=== PATIENT | female | born 1940 | race Caucasian/White ===

== ENCOUNTER 2018-07-07 07:17 | Inpatient (IN) | payer OTHER ==
[2018-06-29 13:58] VITALS: BMI 29.7
[2018-07-07] MEDS ORDERED: DEXAMETHASONE SOD PHOSPHATE/PF 10 MG/ML SDV ONE (07:50)
[2018-07-07] MEDS ORDERED: BUPIVACAINE HCL/PF (5 MG/ML) 30 ML VIAL IJ ONE (07:50)
[2018-07-07] MEDS ORDERED: MIDAZOLAM HCL 2 MG/2 ML SINGLE DOSE VIAL ONE ×2 (07:50→11:16)
[2018-07-07] MEDS ORDERED: PROPOFOL 20 ML ONE ×3 (08:13→12:21)
[2018-07-07] MEDS ORDERED: VANCOMYCIN 1,000 MG VIAL (RESTRICTED TO ID ONLY) ONE (08:15)
[2018-07-07] MEDS ORDERED: ceFAZolin SODIUM 1 GM VIAL ONE ×2 (08:15→11:54)
[2018-07-07] MEDS ORDERED: SODIUM CHLORIDE 0.9% P/F 10 ML VIAL IJ ONE ×3 (08:15→11:54)
[2018-07-07] MEDS ORDERED: BENZOIN/ALOE VERA/STORAX/TOLU 58 ML BOTTLE ONE (10:02)
[2018-07-07] MEDS ORDERED: TRANEXAMIC ACID 1000 MG/10 ML VIAL IVPUSH ONE (10:04)
[2018-07-07] MEDS ORDERED: CEFAZOLIN 1 GM/D5W 1 GRAM/50 ML BAG IVPB ONE (10:04)
[2018-07-07] MEDS ORDERED: VANCOMYCIN 1,000 MG in DEXTROSE 5%-WATER - 250 ML IVPB ONE (10:04)
[2018-07-07] MEDS ORDERED: ePHEDrine SULFATE 50 MG/1 ML AMPULE ONE (10:19)
[2018-07-07] MEDS ORDERED: LIDOCAINE HCL/PF 2% SDV 5ML VIAL ONE (10:21)
[2018-07-07] MEDS ORDERED: TRANEXAMIC ACID 1000 MG/10 ML VIAL ONE (10:34)
[2018-07-07] MEDS ORDERED: KETOROLAC TROMETHAMINE 30 MG/1 ML VIAL ONE (12:22)
[2018-07-07] MEDS ORDERED: ONDANSETRON 4 MG/2 ML VIAL IVPUSH PRN ×2 (12:31→13:00)
[2018-07-07] MEDS ORDERED: MAG HYDROX/AL HYDROX/SIMETH 30 ML UNIT-DOSE CUP PO PRN (12:31)
[2018-07-07] MEDS ORDERED: MAGNESIUM HYDROX 2400MG/30ML ORAL SUSPENSION 30 ML CUP PO PRN (12:31)
--- NOTE | 2018-07-07 12:36 | PN ---
Progress Note (short form) - Note Progress Note: 77F s/p RIGHT total hip replacement POD #0. -Pain control: as per anaesthesia team. -DVT PPx: - Mechanical: B/L LE KAYLA's, SCD's. - Chemical: ASA EC 81mg PO BID x 6 weeks post-op. -Incentive spirometry; pulmonary toilet. -Claudia-op antibiotics: Ancef. -PT/OT/Rehab, OOB. -WBAT RLE. -Hip abduction pillow when not ambulating. -f/u post-op trial of void. -Advance diet as tolerated. -f/u AM labs. -f/u post-op AP pelvis & right hip x-rays. -Care per medical hospitalist team. -Discharge planning. -Will follow. Joss Mullins MD (Orthopaedic Surgery).
--- NOTE | 2018-07-07 12:44 | OP ---
Operative Note - Note: Operative Date: 07/07/18 Pre-Operative Diagnosis: Right hip DJD Operation: 1. Right DAMIEN. 2. ORIF right greater trochanter Implants: Eva. Cup - Tritanium, 56mm. Poly - 28mm, neutral. Stem - SecureFit Advanced #10, High-Offset (127 degree NSA). Head - 28mm diameter, - 4mm length Biolox/Delta Ceramic Specimens Removed: Right femoral head Estimated Blood Loss (mls): 200 Fluid Volume Replaced (mls): 1,000 Operative Report Dictated: Yes
[2018-07-07] MEDS ORDERED: LACTATED RINGERS SOLUTION 1,000 ML IV SCH ×2 (12:45→13:00)
[2018-07-07] MEDS ORDERED: ACETAMINOPHEN 325 MG TABLET (FP) PO SCH (13:00)
[2018-07-07] MEDS ORDERED: oxyCODONE HCL 5 MG TABLET PO PRN (13:00)
--- NOTE | 2018-07-07 16:12 | CONSULT ---
Consultation: REQUESTING PROVIDER: Dr. Joss Mullins PCP/forensic computer examiner: Dr. Sears CONSULT REQUEST: We have been asked to medically manage this patient perioperatively. HISTORY OF PRESENT ILLNESS: 77 year-old female with a PMH significant for HTN, HLD, heart failure, NIDDM, COPD, anemia, paranoid schizophrenia, dementia, and osteoarthritis of the right hip s/p elective total right hip replacement earlier today. REVIEW OF SYSTEMS: CONSTITUTIONAL: Absent: fever, chills, diaphoresis, generalized weakness, malaise, loss of appetite, weight change HEENT: Absent: rhinorrhea, nasal congestion, throat pain, throat swelling, difficulty swallowing, mouth swelling, ear pain, eye pain, visual changes CARDIOVASCULAR: Absent: chest pain, syncope, palpitations, irregular heart rate, lightheadedness , peripheral edema RESPIRATORY: Absent: cough, shortness of breath, dyspnea with exertion, orthopnea, wheezing, stridor, hemoptysis GASTROINTESTINAL: Absent: abdominal pain, abdominal distension, nausea, vomiting, diarrhea, constipation, melena, hematochezia GENITOURINARY: Absent: dysuria, frequency, urgency, hesitancy, hematuria, flank pain, genital pain MUSCULOSKELETAL: +right hip pain Absent: myalgia, arthralgia, joint swelling, back pain, neck pain SKIN: Absent: rash, itching, pallor HEMATOLOGIC/IMMUNOLOGIC: Absent: easy bleeding, easy bruising, lymphadenopathy, frequent infections ENDOCRINE: Absent: unexplained weight gain, unexplained weight loss, heat intolerance, cold intolerance NEUROLOGIC: Absent: headache, focal weakness or paresthesias, dizziness, unsteady gait, seizure, mental status changes, bladder or bowel incontinence PHYSICAL EXAMINATION Vital Signs Temperature 97.7 F 07/07/18 12:47 Pulse Rate 72 07/07/18 14:40 Respiratory Rate 17 07/07/18 14:40 Blood Pressure 120/47 07/07/18 14:40 O2 Sat by Pulse Oximetry (%) 100 07/07/18 14:30 GENERAL: Awake, alert, and fully oriented, in no acute distress. Denies pain. HEAD: Normal with no signs of trauma. LUNGS: Breath sounds equal, clear to auscultation bilaterally. No wheezes, and no crackles. No accessory muscle use. HEART: Regular rate and rhythm, S1 and S2 ABDOMEN: Soft, nontender, not distended UPPER EXTREMITIES: 2+ pulses, warm, well-perfused. No cyanosis. No clubbing. Cap refill <2 seconds. No peripheral edema. LOWER EXTREMITIES: immobilizer in place, SCDs, TEDs NEUROLOGICAL: Cranial nerves II-XII intact. Normal speech. Laboratory Results - last 24 hr 07/07/18 07/07/18 08:07 12:57 POC Glucometer 81 116 Current Medications Generic Name Dose Route Start Last Admin Trade Name Freq PRN Reason Stop Dose Admin Acetaminophen 650 mg 07/07/18 20:00 Tylenol - PO 07/10/18 19:59 Q6H JANESSA Al Hydroxide/Mg Hydroxide 30 ml 07/07/18 12:31 Mylanta Oral Suspension - PO Q4H PRN DYSPEPSIA Albuterol Sulfate 1 amp 07/07/18 16:30 Ventolin 0.083% Nebulizer Soln - NEB Q6H PRN SHORT OF BREATH/WHEEZING Aripiprazole 40 mg 07/07/18 22:00 Abilify PO HS JANESSA Aspirin 81 mg 07/07/18 22:00 Asa - PO BID [facility] Atorvastatin Calcium 10 mg 07/07/18 22:00 Lipitor - PO HS JANESSA Fenofibric Acid 135 mg 07/08/18 10:00 Trilipix - PO DAILY JANESSA Furosemide 40 mg 07/08/18 10:00 Lasix - PO DAILY [facility] Gabapentin 300 mg 07/07/18 22:00 Neurontin - PO HS JANESSA Cefazolin Sodium 1 gram in 50 mls @ 100 mls/hr 07/07/18 18:00 Ancef 1 Gm Premixed Ivpb - IVPB 07/08/18 02:29 Q8H-IV JANESSA Lactated Ringer's 1,000 mls @ 100 mls/hr 07/07/18 12:45 Lactated Ringers Solution IV 07/08/18 06:00 ASDIR JANESSA Insulin Aspart 0 units 07/07/18 22:00 Novolog Vial SQ ACHS JANESSA Protocol Magnesium Hydroxide 30 ml 07/07/18 12:31 Milk Of Magnesia - PO PRN PRN CONSTIPATION Non-Formulary Medication 10 mg 07/08/18 10:00 Methylphenidate Hcl [Ritalin] PO DAILY JANESSA Ondansetron HCl 4 mg 07/07/18 12:31 Zofran Injection IVPUSH Q6H PRN NAUSEA Oxycodone HCl 5 mg 07/07/18 13:00 Roxicodone - PO Q3H PRN PAIN LEVEL 1-5 Oxycodone HCl 10 mg 07/07/18 13:00 Roxicodone - PO Q3H PRN PAIN LEVEL 6-10 Oxycodone HCl 10 mg 07/07/18 22:00 Oxycontin - PO 07/10/18 13:01 BID [facility] Pantoprazole Sodium 40 mg 07/08/18 10:00 Protonix - PO DAILY JANESSA Senna/Docusate Sodium 2 tablet 07/07/18 22:00 Pericolace - PO BID JANESSA Sertraline HCl 50 mg 07/08/18 10:00 Zoloft - PO DAILY JANESSA ASSESSMENT/PLAN 77 year-old female with a PMH significant for HTN, HLD, heart failure, NIDDM, COPD, anemia, paranoid schizophrenia, dementia, and osteoarthritis of the right hip s/p total right hip replacement on 07/07/18. Osteoarthritis of right hip s/p total right hip replacement --POD #0 --perioperative antibiotics per surgery --Tylenol, oxycontin, oxycodone for pain; continue home gabapentin --Zofran for nausea --protonix --bowel regimen: pericolace, milk of magnesia Hypertension --not on antihypertensives Hyperlipidemia --continue statin Heart failure --continue home dose PO lasix NIDDM --Novolog sliding scale coverage COPD --duonebs PRN Anemia --cbc in am Paranoid schizophrenia Dementia --at baseline functioning per daughter --continue sertraline, Abilify FEN Fluids: PO intake adequate Electrolytes: replete as indicated Nutrition: diabetic low sodium DVT prophylaxis: mechanical only, SCDs, oob, ambulation Physical therapy Dispo: We will continue to follow the patient. Thank you for this consultative opportunity. Full code. Visit type - Emergency Visit Emergency Visit: No - New Patient This patient is new to me today: Yes Date on this admission: 07/07/18 - Critical Care Critical Care patient: No
[2018-07-07] MEDS ORDERED: ALBUTEROL SO4 0.083% IH SOL 2.5 MG/3 ML VIAL.NEB. NEB PRN (16:30)
[2018-07-07] MEDS: CEFAZOLIN 1 GM/D5W 1 GRAM/50 ML BAG IVPB SCH (17:02)
[2018-07-07] MEDS ORDERED: INSULIN (NOVOLOG) ASPART 100 UNITS/ML 10ML VIAL ONE (21:19)
[2018-07-07] MEDS: ASPIRIN 81 MG CHEWABLE TABLETS PO SCH (21:42)
[2018-07-07] MEDS: SENNOSIDES/DOCUSATE COMBO (SENNA PLUS) TABLET (UD) PO SCH (21:42)
[2018-07-07] MEDS: ATORVASTATIN CA 10 MG TABLET (FP) PO SCH (21:42)
[2018-07-07] MEDS: GABAPENTIN 300 MG CAPSULE (FP) PO SCH (21:42)
[2018-07-07] MEDS: oxyCODONE HCL 10 MG SUSTAINED ACTING TABLET PO SCH (21:42)
[2018-07-07] MEDS: INSULIN SLIDING SCALE (NOVOLOG) 1 VIAL SQ SCH (21:43)
[2018-07-07] MEDS: ACETAMINOPHEN 325 MG TABLET (FP) PO SCH (21:44)
[2018-07-07] MEDS: ARIPiprazole 10 MG TABLET PO SCH (21:45)
[2018-07-08] MEDS: CEFAZOLIN 1 GM/D5W 1 GRAM/50 ML BAG IVPB SCH (01:05)
--- NOTE | 2018-07-08 01:35 | OP ---
DATE OF OPERATION: 07/07/2018 SURGEON: Joss Mullins MD SOLE ROUNDER: Shukri Mullins MD PREOPERATIVE DIAGNOSIS: Osteoarthritis right hip. POSTOPERATIVE DIAGNOSIS: Osteoarthritis right hip. OPERATION PERFORMED: 1. Right total hip arthroplasty, cementless (Frank[place]). 2. Basket wiring fixation of greater trochanter. ANESTHESIA: General with spinal anesthesia. ANTIBIOTICS GIVEN: Kefzol 2 g, 1 g vancomycin preoperatively and 1 g Kefzol given at the time of seating the femoral components. BLOOD LOSS: Approximately 200 mL. PROCEDURE: Patient was correctly identified and brought to the operating room. Right lower extremity was prepped free and draped in the routine manner with betadine scrub solution, wiped off with alcohol, and DuraPrep provided. Imaging was available and timeout was called. With the hip and knee flexed to 45 degrees, the incision was made centrally over the greater trochanter. Dissection was taken through skin, subcutaneous tissue, to the fascia. The fascia was opened and held open with Charnley retractors. Using anterior biased direct lateral approach, 1.5 cm of distal gluteus medius tendon was incised longitudinally in line with the fibers and lifted off of the bone bed. This gave us easy access to the neck. From [id number] the entire capsule was lifted off of the femoral neck and head. A large osteophyte was noted superolaterally, impossible to dislocate the hip until this was resected. The soft tissues were held out of harm's way with Em retractors placed on the ileum and a large osteochondral fragment of bone was resected. The hip was then adducted, externally rotated, and dislocated with no difficulties. Em retractor was placed around the neck. The neck cut was made in accordance with the principles of Charnley, approximately 1 cm above the trochanter. Using anterior, posterior, and inferior retractors, the acetabulum was exposed. All peripheral limbus and loose soft tissue was resected. Reaming was to size 55 and size 56 Titanium Custom Eva cup was inserted and closed with about 10 degrees of anteversion. A 28-mm liner inserted. Solid press fixation achieved accordingly. Once this had been performed, broaching of the femur was to size 10 and a size 10 x 127 degree secure-fit component stem was inserted. This received a -4 ceramic head measuring 28 mm. This was inserted after broaching. The trialing components revealed full range of movement. No dislocation. The only problem was slight open lengthening of the leg on the right, but because of stability reasons, we opted to accept this. Inadvertently the greater trochanter broke off of the bone bed. At that point, we seated 18-gauge wires for a basket-wiring technique of Charnley. With the hip adducted, a size 10 Franklin secure fit implant was inserted, virtually with zero anteversion and bolted onto the -4, 28 mm head and reduced the hip. The hip was placed to full range of movement with no complications. The basket wiring technique of Charnley was then utilized to reattach the broken trochanter and solid fixation achieved accordingly. All 18-gauge wires were then buried deep out of harm's way. The closure was hip was fascia with 1 Vicryl, subcutaneous 1 and 2-0 Vicryl, and skin with ria. DRAINS: No drains utilized. ESTIMATED BLOOD LOSS: Minimal bleeding at the end the procedure. OVERALL COMMENT: The operation went well. Unfortunately leg length was uneven because of the stability factor and this will be explained to the patient and family accordingly. MD GENNA [id number]
[2018-07-08] MEDS: ACETAMINOPHEN 325 MG TABLET (FP) PO SCH ×5 (01:57→21:18)
[2018-07-08] MEDS: INSULIN SLIDING SCALE (NOVOLOG) 1 VIAL SQ SCH ×4 (07:07→21:49)
[2018-07-08 08:24] LABS: BASO % 0.3 % (0-2.0); EOS % 0.4 % (0-4.5); LYMPH % 14.1 % (8-40); MCH 29.2 pg (25.7-33.7); MCHC 33.4 g/dl (32.0-36.0); MEAN CELL VOLUME 87.5 fl (80-96); MEAN PLT VOLUME 8.6 fl (7.5-11.1); NEUT % 77.2 % (42.8-82.8); PLATELET COUNT 266 K/MM3 (134-434); RBC 2.74 M/mm3 (3.60-5.2); RDW 14.9 % (11.6-15.6); WHITE BLOOD COUNT 4.9 K/mm3 (4.0-10.8)
[2018-07-08 08:44] LABS: ALBUMIN 2.9 g/dl (3.5-5.0); ALK PHOS 24 U/L (32-92); ANION GAP 9 MMOL/L (8-16); BILIRUBIN,TOTAL 0.9 mg/dl (0.2-1.0); BLOOD UREA NITROGEN 63 mg/dl (7-18); CALCIUM 8.3 mg/dl (8.4-10.2); CHLORIDE 102 mmol/L (98-107); CO2 25 mmol/L (22-28); CREATININE 2.3 mg/dl (0.6-1.3); GLUCOSE,RANDOM 114 mg/dl (74-106); MAGNESIUM 1.9 mg/dL (1.8-2.4); POTASSIUM 4.4 mmol/L (3.5-5.1); SGOT/AST 64 U/L (10-42); SGPT/ALT 19 U/L (10-40); SODIUM 136 mmol/L (136-145); TOT PROT 5.6 g/dl (6.4-8.3)
--- NOTE | 2018-07-08 09:18 | PN ---
Progress Note (short form) - Note Progress Note: POD #1 Alert. Sitting in chair at bedside. Eating breakfast. Daughter present expresses concerns over using narcotics for pain management given her history of addictive personality (alcoholic). Currenlty, patient states she doesn't have any pain. Only a little pain when shifting from [id number]. She has voided. Denies n/v/f/c. Last Vital Signs Temp Pulse Resp BP Pulse Ox 97.4 F L 74 18 124/41 94 L 18 06:43 07/08/18 06:43 07/08/18 06:43 07/08/18 06:43 07/08/18 06:43 CBC, BMP 07/08/18 07:30 07/08/18 07:30 Gen: nad LE: Right hip Dressing c/d/i. Foam spacer in place between legs. SCDs bilat. Problem List - Problems (1) Degenerative joint disease of right hip Assessment/Plan: POD #1 s/p Right DAMIEN. 2. ORIF right greater trochanter Pain management PRN DVT PPx with ASA 81mg PO BID x6 weeks. KAYLA/SCD bilat Incentive Spirometer PT WBAT RLE Posterior right hip precaution Cont hip abduction pillow Cont care per medicine f/u Right hip XR DC planning to REHAB f/u with [facility] [place] office --> call for appointment Above plan discussed with Dr. Shukri Mullins and agrees. Code(s): M16.11 - UNILATERAL PRIMARY OSTEOARTHRITIS, RIGHT HIP
[2018-07-08] MEDS: ASPIRIN 81 MG CHEWABLE TABLETS PO SCH ×2 (09:44→21:15)
[2018-07-08] MEDS: oxyCODONE HCL 10 MG SUSTAINED ACTING TABLET PO SCH ×2 (09:45→21:15)
[2018-07-08] MEDS: SERTRALINE HCL 50 MG TABLET (FP) PO SCH (09:45)
[2018-07-08] MEDS: PANTOPRAZOLE 40 MG TABLET (FP) PO SCH (09:45)
[2018-07-08] MEDS: FENOFIBRIC ACID 135 MG CAP PO SCH (09:48)
[2018-07-08] MEDS: SENNOSIDES/DOCUSATE COMBO (SENNA PLUS) TABLET (UD) PO SCH ×2 (09:48→21:18)
[2018-07-08] MEDS: oxyCODONE HCL 5 MG TABLET PO PRN ×2 (09:49→17:15)
[2018-07-08] MEDS ORDERED: FUROSEMIDE 40 MG TABLET (FP) PO SCH (10:00)
[2018-07-08] MEDS ORDERED: METHYLPHENIDATE HCL 10 MG PO SCH (10:00)
--- NOTE | 2018-07-08 14:19 | PN ---
Physical Exam: SUBJECTIVE: Patient seen and examined at bedside. Daughter present. Patient says she has a little pain in right hip with movement. OBJECTIVE: Vital Signs Period Temp Pulse Resp BP Sys/Gonzalez Pulse Ox Last 24 Hr 97.4 F-98.0 F 59-74 17-18 104-124/41-51 94-100 GENERAL: Awake, alert, and fully oriented, in no acute distress. Denies pain. HEAD: Normal with no signs of trauma. LUNGS: Breath sounds equal, clear to auscultation bilaterally. No wheezes, and no crackles. No accessory muscle use. HEART: Regular rate and rhythm, S1 and S2 ABDOMEN: Soft, nontender, not distended UPPER EXTREMITIES: 2+ pulses, warm, well-perfused. No cyanosis. No clubbing. Cap refill <2 seconds. No peripheral edema. LOWER EXTREMITIES: immobilizer in place, SCDs, TEDs NEUROLOGICAL: Cranial nerves II-XII intact. Normal speech. Laboratory Results - last 24 hr 07/07/18 07/07/18 07/08/18 17:00 21:06 07:06 WBC RBC Hgb Hct MCV MCH MCHC RDW Plt Count MPV Absolute Neuts (auto) Neutrophils % Lymphocytes % Monocytes % Eosinophils % Basophils % Sodium Potassium Chloride Carbon Dioxide Anion Gap BUN Creatinine Creat Clearance w eGFR POC Glucometer 332 344 117 Random Glucose Calcium Magnesium Total Bilirubin AST ALT Alkaline Phosphatase Total Protein Albumin 07/08/18 07/08/18 07:30 07:30 WBC 4.9 RBC 2.74 L Hgb 8.0 L Hct 24.0 L MCV 87.5 MCH 29.2 MCHC 33.4 RDW 14.9 Plt Count 266 MPV 8.6 Absolute Neuts (auto) 3.8 Neutrophils % 77.2 Lymphocytes % 14.1 Monocytes % 8.0 Eosinophils % 0.4 Basophils % 0.3 Sodium 136 Potassium 4.4 Chloride 102 Carbon Dioxide 25 Anion Gap 9 BUN 63 H Creatinine 2.3 H Creat Clearance w eGFR 20.56 POC Glucometer Random Glucose 114 H Calcium 8.3 L Magnesium 1.9 Total Bilirubin 0.9 AST 64 H ALT 19 Alkaline Phosphatase 24 L Total Protein 5.6 L Albumin 2.9 L Active Medications Generic Name Dose Route Start Last Admin Trade Name Freq PRN Reason Stop Dose Admin Acetaminophen 650 mg 07/07/18 20:00 07/08/18 08:45 Tylenol - PO 07/10/18 19:59 650 mg Q6H JANESSA Administration Al Hydroxide/Mg Hydroxide 30 ml 07/07/18 12:31 Mylanta Oral Suspension - PO Q4H PRN DYSPEPSIA Albuterol Sulfate 1 amp 07/07/18 16:30 Ventolin 0.083% Nebulizer Soln - NEB Q6H PRN SHORT OF BREATH/WHEEZING Aripiprazole 40 mg 07/07/18 22:00 07/07/18 21:45 Abilify PO 40 mg HS JANESSA Administration Aspirin 81 mg 07/07/18 22:00 07/08/18 09:44 Asa - PO 81 mg BID JANESSA Administration Atorvastatin Calcium 10 mg 07/07/18 22:00 07/07/18 21:42 Lipitor - PO 10 mg HS JANESSA Administration Fenofibric Acid 135 mg 07/08/18 10:00 07/08/18 09:48 Trilipix - PO 135 mg DAILY JANESSA Administration Furosemide 40 mg 07/08/18 10:00 07/08/18 09:44 Lasix - PO 40 mg DAILY JANESSA Administration Gabapentin 300 mg 07/07/18 22:00 07/07/18 21:42 Neurontin - PO 300 mg HS JANESSA Administration Insulin Aspart 1 vial 07/07/18 22:00 07/08/18 07:07 Novolog Vial Sliding Scale - SQ Not Given ACHS [facility] Protocol Magnesium Hydroxide 30 ml 07/07/18 12:31 Milk Of Magnesia - PO PRN PRN CONSTIPATION Non-Formulary Medication 10 mg 07/08/18 10:00 Methylphenidate Hcl [Ritalin] PO DAILY [facility] Ondansetron HCl 4 mg 07/07/18 12:31 Zofran Injection IVPUSH Q6H PRN NAUSEA Oxycodone HCl 5 mg 07/07/18 13:00 Roxicodone - PO Q3H PRN PAIN LEVEL 1-5 Oxycodone HCl 10 mg 07/07/18 13:00 07/08/18 09:49 Roxicodone - PO 10 mg Q3H PRN Administration PAIN LEVEL 6-10 Oxycodone HCl 10 mg 07/07/18 22:00 07/08/18 09:45 Oxycontin - PO 07/10/18 13:01 10 mg BID JANESSA Administration Pantoprazole Sodium 40 mg 07/08/18 10:00 07/08/18 09:45 Protonix - PO 40 mg DAILY JANESSA Administration Senna/Docusate Sodium 2 tablet 07/07/18 22:00 07/08/18 09:48 Pericolace - PO 2 tablet BID JANESSA Administration Sertraline HCl 50 mg 07/08/18 10:00 07/08/18 09:45 Zoloft - PO 50 mg DAILY JANESSA Administration ASSESSMENT/PLAN 77 year-old female with a PMH significant for HTN, HLD, heart failure, NIDDM, COPD, anemia, paranoid schizophrenia, dementia, and osteoarthritis of the right hip s/p total right hip replacement on 07/07/18. Osteoarthritis of right hip s/p total right hip replacement --POD #1 --perioperative antibiotics per surgery --pain presently well-managed; continue tylenol, oxycontin, oxycodone, gabapentin --Zofran for nausea --protonix --bowel regimen: pericolace, milk of magnesia Elevated creatinine --Cr 2.3 today, was 2.0 on 06/29/18 --hold Lasix --bmp in am; Heart failure, NOS --hold lasix --CXR Hypertension --not on antihypertensives Hyperlipidemia --continue statin NIDDM --Novolog sliding scale coverage COPD --duonebs PRN Anemia --h/h stable Paranoid schizophrenia Dementia --at baseline functioning per daughter --continue sertraline, Abilify FEN Fluids: PO intake adequate Electrolytes: replete as indicated Nutrition: diabetic low sodium DVT prophylaxis: 81mg ASA BID x 6 weeks; SCDs, TEDs, oob, ambulation Physical therapy Dispo: We will continue to follow the patient. Thank you for this consultative opportunity. Full code. Visit type - Emergency Visit Emergency Visit: Yes ED Registration Date: 07/07/18 Care time: The patient presented to the Emergency Department on the above date and was hospitalized for further evaluation of their emergent condition. - New Patient This patient is new to me today: No - Critical Care Critical Care patient: No
[2018-07-08] MEDS ORDERED: SODIUM CHLORIDE 1,000 ML IV SCH (14:30)
--- NOTE | 2018-07-08 15:22 | PN ---
Progress Note (short form) - Note Progress Note: Anesthesiology Post-op 77 y.o. woman POD#1 s/p right THR with neuraxial/regional anesthesia. Pt. feels well, participating in PT. She does have some pain but the pain meds help; she slept comfortably overnight. VSS. 77 y.o. woman with stable post-operative course. Continue current management.
[2018-07-08 16:59] LABS: URINE APPEARANCE Clear; URINE BILIRUBIN Negative (NEGATIVE); URINE COLOR Yellow; URINE GLUCOSE (UA) Negative (NEGATIVE); URINE KETONE Negative (NEGATIVE); URINE NITRITE Negative (NEGATIVE); URINE PROTEIN Negative (NEGATIVE); URINE UROBILINOGEN 0.2 (0.2-1.0)
[2018-07-08 17:00] LABS: URINE LEUK ESTERASE TRACE (NEGATIVE)
[2018-07-08 17:04] LABS: URINE CREATININE 92.1 mg/dL (20-320)
[2018-07-08 21:04] LABS: URINE RBC 0-2 /hpf (0-3)
[2018-07-08] MEDS: ATORVASTATIN CA 10 MG TABLET (FP) PO SCH (21:15)
[2018-07-08] MEDS: GABAPENTIN 300 MG CAPSULE (FP) PO SCH (21:15)
[2018-07-08] MEDS ORDERED: PT OWN MED DRAWER 7, Y5N ONE (21:17)
[2018-07-08] MEDS: ARIPiprazole 10 MG TABLET PO SCH (21:18)
[2018-07-09] MEDS: ACETAMINOPHEN 325 MG TABLET (FP) PO SCH ×2 (01:07→08:05)
[2018-07-09 06:51] VITALS: BP 133/49; PULSE 78; TEMP 98
[2018-07-09] MEDS: INSULIN SLIDING SCALE (NOVOLOG) 1 VIAL SQ SCH (07:15)
[2018-07-09 08:13] LABS: BASO % 0.1 % (0-2.0); EOS % 1.2 % (0-4.5); HEMOGLOBIN 7.1 GM/dl (10.7-15.3); LYMPH % 13.1 % (8-40); MCH 29.6 pg (25.7-33.7); MCHC 33.6 g/dl (32.0-36.0); MEAN CELL VOLUME 88.1 fl (80-96); MEAN PLT VOLUME 8.8 fl (7.5-11.1); MONO % 8.5 % (3.8-10.2); NEUT % 77.1 % (42.8-82.8); PLATELET COUNT 214 K/MM3 (134-434); RBC 2.39 M/mm3 (3.60-5.2); WHITE BLOOD COUNT 5.5 K/mm3 (4.0-10.8)
[2018-07-09 08:30] LABS: ALBUMIN 2.7 g/dl (3.5-5.0); ALK PHOS 34 U/L (32-92); ANION GAP 4 MMOL/L (8-16); BILIRUBIN,TOTAL 0.8 mg/dl (0.2-1.0); BLOOD UREA NITROGEN 63 mg/dl (7-18); CALCIUM 7.7 mg/dl (8.4-10.2); CHLORIDE 106 mmol/L (98-107); CO2 25 mmol/L (22-28); CREATININE 2.4 mg/dl (0.6-1.3); GLUCOSE,RANDOM 131 mg/dl (74-106); MAGNESIUM 1.9 mg/dL (1.8-2.4); PHOSPHOROUS 4.1 mg/dl (2.5-4.6); SGOT/AST 55 U/L (10-42); SGPT/ALT 10 U/L (10-40); SODIUM 135 mmol/L (136-145); TOT PROT 5.4 g/dl (6.4-8.3)
[2018-07-09] MEDS: ASPIRIN 81 MG CHEWABLE TABLETS PO SCH (10:00)
[2018-07-09] MEDS: SENNOSIDES/DOCUSATE COMBO (SENNA PLUS) TABLET (UD) PO SCH (10:00)
[2018-07-09] MEDS: FENOFIBRIC ACID 135 MG CAP PO SCH (10:10)
[2018-07-09] MEDS: PANTOPRAZOLE 40 MG TABLET (FP) PO SCH (10:10)
[2018-07-09] MEDS: SERTRALINE HCL 50 MG TABLET (FP) PO SCH (10:11)
[2018-07-09] MEDS: oxyCODONE HCL 10 MG SUSTAINED ACTING TABLET PO SCH (12:09)
--- NOTE | 2018-07-09 12:11 | DS ---
Physical Exam: SUBJECTIVE: Patient seen and examined OBJECTIVE: Vital Signs Period Temp Pulse Resp BP Sys/Gonzalez Pulse Ox Last 24 Hr 97.5 F-98.9 F 64-81 17-19 96-133/32-50 93-98 PHYSICAL EXAM GENERAL: Awake, alert, and fully oriented, in no acute distress. Denies pain. HEAD: Normal with no signs of trauma. LUNGS: Breath sounds equal, clear to auscultation bilaterally. No wheezes, and no crackles. No accessory muscle use. HEART: Regular rate and rhythm, S1 and S2 ABDOMEN: Soft, nontender, not distended UPPER EXTREMITIES: 2+ pulses, warm, well-perfused. No cyanosis. No clubbing. Cap refill <2 seconds. No peripheral edema. LOWER EXTREMITIES: immobilizer in place, SCDs, TEDs NEUROLOGICAL: Cranial nerves II-XII intact. Normal speech. LABS Laboratory Results - last 24 hr 07/08/18 07/08/18 07/08/18 16:50 16:50 21:28 WBC RBC Hgb Hct MCV MCH MCHC RDW Plt Count MPV Absolute Neuts (auto) Neutrophils % Lymphocytes % Monocytes % Eosinophils % Basophils % Sodium Potassium Chloride Carbon Dioxide Anion Gap BUN Creatinine Creat Clearance w eGFR POC Glucometer 117 Random Glucose Calcium Phosphorus Magnesium Total Bilirubin AST ALT Alkaline Phosphatase Total Protein Albumin Urine Color Yellow Urine Appearance Clear Urine pH 5.0 Ur Specific [place] 1.010 Urine Protein Negative Urine Glucose (UA) Negative Urine Ketones Negative Urine Blood Negative Urine Nitrite Negative Urine Bilirubin Negative Urine Urobilinogen 0.2 Ur Leukocyte Esterase Trace H Urine RBC 0-2 Urine WBC 2-5 Ur Random Sodium 16 L Urine Creatinine 92.1 07/09/18 07/09/18 07/09/18 07:11 08:00 08:00 WBC 5.5 RBC 2.39 L Hgb 7.1 L Hct 21.0 L MCV 88.1 MCH 29.6 MCHC 33.6 RDW 15.0 Plt Count 214 MPV 8.8 Absolute Neuts (auto) 4.2 Neutrophils % 77.1 Lymphocytes % 13.1 Monocytes % 8.5 Eosinophils % 1.2 Basophils % 0.1 Sodium 135 L Potassium 4.0 Chloride 106 Carbon Dioxide 25 Anion Gap 4 L BUN 63 H Creatinine 2.4 H Creat Clearance w eGFR 19.58 POC Glucometer 135 Random Glucose 131 H Calcium 7.7 L Phosphorus 4.1 Magnesium 1.9 Total Bilirubin 0.8 AST 55 H ALT 10 D Alkaline Phosphatase 34 D Total Protein 5.4 L Albumin 2.7 L Urine Color Urine Appearance Urine pH Ur Specific [place] Urine Protein Urine Glucose (UA) Urine Ketones Urine Blood Urine Nitrite Urine Bilirubin Urine Urobilinogen Ur Leukocyte Esterase Urine RBC Urine WBC Ur Random Sodium Urine Creatinine HOSPITAL COURSE: Date of Admission:07/07/18 Date of Discharge: 07/09/18 77 year-old female with a PMH significant for HTN, HLD, heart failure, NIDDM, COPD, anemia, paranoid schizophrenia, dementia, and osteoarthritis of the right hip s/p total right hip replacement on 07/07/18. Osteoarthritis of right hip s/p total right hip replacement --being discharged on POD #2 --perioperative antibiotics complete --pain was managed with tylenol, oxycontin, oxycodone, gabapentin --has participated in PT --bowel regimen: pericolace, milk of magnesia Elevated creatinine --Cr 2.4 today, was 2.0 on 06/29/18; will need to be followed at rehab --contniue to hold Lasix Heart failure, NOS --lasix was held perioperatively Hypertension --not on antihypertensives Hyperlipidemia --continued statin NIDDM --Novolog sliding scale coverage COPD --duonebs PRN Anemia --h/h stable Paranoid schizophrenia Dementia --at baseline functioning per daughter --continued sertraline, Abilify Minutes to complete discharge: 35 Discharge Summary Reason For Visit: UNILATERAL OA RIGHT HIP Current Active Problems Degenerative joint disease of right hip (Acute) Condition: Improved - Instructions Diet, Activity, Other Instructions: Please read these instructions carefully: 1. Patient's creatinine level is elevated. Lasix and potassium have been held. She needs to have bmp drawn daily to trend renal function. 2. Since lasix is being held, patient's respiratory and volume status has to be carefully monitored. Please advise your medical lab technologist Dr. Mullins Discharge Instructions for Hip Replacement Post Operative Instructions Physical activity Physical Therapist will come to your home for the first 5 days. You will be set up with outpatient PT at your first post-operative visit. Use assistive devices for ambulation at all times. Weight bearing as tolerated on your surgical side. Wound care Leave your surgical dressing in place. Do not change the dressing until seen by your surgeon in the office. No baths or showers. Do not submerge your incision. Do not apply any ointments or lotions to your incision. Please call the office if your dressing is soiled/dirty or is falling off. Apply Graduated Compression Stockings (TEDS) to both lower extremities-remove daily for hygiene ONLY. Diet There are no dietary restrictions. Eat healthy, high-fiber foods. Drink 6 to 8 glasses of liquid each day. This will assist in keeping your bowels are regular. Pain management Any pain prescription medication ordered should be taken as prescribed for moderate to severe pain. Do not take additional Tylenol while taking Percocet. Posterior Hip Precautions: Do not cross the leg you had surgery on over your other leg. (Do not cross your legs.)Use an elevated toilet seat. Do not sit on low chairs or beds. Use purple pillow (abductor) when lying in bed. Take Aspirin 81 mg two times a day for a total of 6 weeks to prevent blood clots. Call Dr. Mullins for any of the following: Severe pain not relieved by medication Fever of 101 or higher Excessive bleeding or drainage on dressing Inability to urinate If you experience chest pain or shortness of breath, please seek emergency care immediately. Please call the office at to confirm your post-op appointment for the week following surgery. Referrals: Joss Mullins MD [Staff Physician] - Disposition: [facility] - Home Medications Comprehensive Discharge Medication List: Ambulatory Orders Albuterol 0.083% Nebulizer Devi [Ventolin 0.083% Nebulizer Soln -] 1 neb NEB DAILY 04/15/18 Aripiprazole [Abilify] 40 mg PO HS 04/15/18 Fenofibric Acid [Trilipix -] 135 mg PO DAILY 04/15/18 Ferrous Sulfate [Iron] 325 mg PO DAILY 04/15/18 Folic Acid - 1 mg PO DAILY 04/15/18 Gabapentin 300 mg PO HS 04/15/18 Lovastatin 40 mg PO HS 04/15/18 Methylphenidate HCl [Ritalin] 10 mg PO DAILY 04/15/18 Sertraline HCl 50 mg PO DAILY 04/15/18 Ibandronate Sodium 150 mg PO MONTHLY 07/07/18 Acetaminophen [Tylenol .Regular Strength -] 650 mg PO Q6H tablet 07/09/18 Aspirin [ASA -] 81 mg PO BID #84 tab.chew 07/09/18 Insulin Sliding Scale [Novolog Vial Sliding Scale -] 1 vial SQ ACHS units 07/09 Pantoprazole Sodium [Protonix -] 40 mg PO DAILY tablet.ec 07/09/18 This patient is new to me today: No Emergency Visit: Yes ED Registration Date: 07/07/18 Care time: The patient presented to the Emergency Department on the above date and was hospitalized for further evaluation of their emergent condition. Critical Care patient: No - Discharge Referral Referred to [facility] Med P.C.: No
--- NOTE | 2018-07-12 15:15 | PATH ---
Surgical Pathology Report Patient Name: [address] Med. Rec. #: [id number] /Age/Gender: 1940 (Age: 77) / F Account: [id number] Location: [facility] MED-SURG Taken: 07/07/2018 Received: 07/07/2018 Reported: 07/12/2018 Physicians: Joss Mullins M.D. Specimen(s) Received RIGHT FEMORAL HEAD Clinical History Right hip osteoarthritis Final Diagnosis FEMORAL HEAD, RIGHT, TOTAL HIP REPLACEMENT: DEGENERATIVE JOINT DISEASE. Electronically Signed Kusum Alvarado M.D. Gross Description Received in formalin, labeled "right femoral head," is a 4.2 x 4.2 x 4.0 cm. femoral head with a 2 cm in length portion of femoral neck attached. The margin of resection is smooth. No areas of eburnation are identified. The articular surface is alexis-yellow and focally lifting away from the underlying bone. The underlying trabecular bone is yellow, soft and focally necrotic. A sales representative groceries section is submitted in one cassette, following decalcification. 07/08/2018 [facility]07/08/2018
== END 2018-07-09 12:34 | DRG 470 ==
LOC: FM/S 07:17
PROVIDERS: ADMIT Orthopaedic Surgery Orthopaedic Surgery of the Spine; ATTEND Orthopaedic Surgery Orthopaedic Surgery of the Spine
PROC: 0SRC0JA Replacement of Right Knee Joint with Synthetic Substitute, Uncemented, Open Approach (ICD-10-PCS; principal; 2018-07-07 10:38)
DX: M16.11 Unilateral primary osteoarthritis, right hip (principal); F20.0 Paranoid schizophrenia; I11.0 Hypertensive heart disease with heart failure; I50.9 Heart failure, unspecified; E78.5 Hyperlipidemia, unspecified; E11.9 Type 2 diabetes mellitus without complications; J44.9 Chronic obstructive pulmonary disease, unspecified; F03.90 Unspecified dementia, unspecified severity, without behavioral disturbance, psychotic disturbance, mood disturbance, and anxiety; D64.9 Anemia, unspecified
CPT/HCPCS: 36415; 71045-TC-FY; 73523-TC-FY; 80053; 81003; 81015; 82570; 82962; 83735; 84100; 84300; 85025; 88304-TC; 88311-TC; 94760; 97116-GP; 97162-GP; J7030

== ENCOUNTER 2019-04-13 08:25 | Inpatient (IN) | payer OTHER ==
[2019-04-08 09:15] VITALS: BMI 30.8
[2019-04-13] MEDS ORDERED: BUPIVACAINE HCL/PF (5 MG/ML) 30 ML VIAL IJ ONE (08:37)
[2019-04-13] MEDS ORDERED: MIDAZOLAM HCL 2 MG/2 ML SINGLE DOSE VIAL ONE (09:38)
[2019-04-13] MEDS ORDERED: TRANEXAMIC ACID 1000 MG/10 ML VIAL IVPUSH ONE (09:51)
[2019-04-13] MEDS ORDERED: CEFAZOLIN 1 GM/D5W 1 GM/50 ML BAG IVPB ONE (09:51)
[2019-04-13] MEDS ORDERED: VANCOMYCIN 1,000 MG in DEXTROSE 5%-WATER - 250 ML IVPB ONE (09:51)
--- NOTE | 2019-04-13 10:00 | PN ---
Progress Note (short form) - Note Progress Note: 78F s/p LEFT total hip replacement POD #0. -Pain control: per anaesthesia team. -f/u post-op CBC, T&S; transfuse PRBC if HCT < 30. -DVT PPx: -Chemical: Aspirin 81mg PO BID x 6 weeks. -Mechanical: KAYLA's, SCD's. -Incentive spirometry q15 min. -PT/OT/Rehab, OOB. -WBAT LLE. -Post-op Ancef x 2 doses. -f/u post-op TOV: 8 hours max. -f/u AM labs. -Diet as tolerated. -Care per medical hospitalist team. -Discharge planning: f/u [facility] [place] Office Thursday04/22/2019; call for appointment . -Will follow. Joss Mullins MD (Orthopaedic Surgery).
--- NOTE | 2019-04-13 10:02 | OP ---
Operative Note - Note: Operative Date: 04/13/19 Pre-Operative Diagnosis: Left hip DJD Operation: Left total hip replacement via Direct Superior approach Implants: Eva. Cup - Trident II-Triathlon, 54mm. Poly - 36mm, neutral. Head - 36mm diameter, -5mm length, Biolox/Delta Ceramic. Stem - Accolade II, #7 , 127 deg NSA (high offset) Post-Operative Diagnosis: Same as Pre-op Surgeon: Joss Mullins Physical Director: Shukri Mullins Anesthesiologist/DAIRY HUSBANDRY WORKER: Asa Hicks Anesthesia: Spinal Specimens Removed: Left femoral head Estimated Blood Loss (mls): 250 Fluid Volume Replaced (mls): 1,400 (Crystalloid) Operative Report Dictated: Yes
[2019-04-13] MEDS ORDERED: PATIENT'S OWN MEDICATION (NON-FORMULARY) (Ibandronate Sodium [Ibandronate Sodium] 150 MG) PO SCH (10:15)
[2019-04-13] MEDS ORDERED: PROPOFOL 20 ML ONE ×3 (10:35)
[2019-04-13] MEDS ORDERED: EPINEPHrine 1:10,000 (P-F SYR) 1 MG/10 ML DISP.SYRIN ONE (10:36)
[2019-04-13] MEDS ORDERED: ePHEDrine SULFATE 50 MG/1 ML AMPULE ONE (10:36)
[2019-04-13] MEDS ORDERED: ceFAZolin SODIUM 1 GM VIAL ONE ×2 (10:49→12:36)
[2019-04-13] MEDS ORDERED: TRANEXAMIC ACID 1000 MG/10 ML VIAL ONE (10:49)
[2019-04-13] MEDS ORDERED: PHENYLEPHRINE HCL 10 MG/1 ML SINGLE DOSE VIAL ONE (10:49)
[2019-04-13] MEDS ORDERED: GLYCOPYRROLATE 0.2 MG/1 ML VIAL ONE (11:10)
[2019-04-13] MEDS ORDERED: BENZOIN TINCTURE SWABSTICK TP ONE (12:25)
[2019-04-13] MEDS ORDERED: BENZOIN/ALOE VERA/STORAX/TOLU 58 ML BOTTLE ONE (12:49)
[2019-04-13] MEDS ORDERED: ONDANSETRON 4 MG/2 ML VIAL IVPUSH PRN ×2 (12:54→13:55)
[2019-04-13] MEDS ORDERED: MAGNESIUM HYDROX 2400MG/30ML ORAL SUSPENSION 30 ML CUP PO PRN (12:54)
[2019-04-13] MEDS ORDERED: MAG HYDROX/AL HYDROX/SIMETH 30 ML UNIT-DOSE CUP PO PRN (12:54)
[2019-04-13] MEDS ORDERED: LACTATED RINGERS SOLUTION 1,000 ML IV SCH ×2 (13:00→14:00)
[2019-04-13 15:04] LABS: HEMATOCRIT 26.4 % (32.4-45.2); HEMOGLOBIN 8.6 GM/dL (10.7-15.3); MCH 28.1 pg (25.7-33.7); MCHC 32.7 g/dl (32.0-36.0); MEAN PLT VOLUME 8.1 fl (7.5-11.1); PLATELET COUNT 289 K/MM3 (134-434); RBC 3.07 M/mm3 (3.60-5.2); RDW 14.7 % (11.6-15.6); WHITE BLOOD COUNT 5.3 K/mm3 (4.0-10.0)
[2019-04-13] MEDS: CEFAZOLIN 1 GM/D5W 1 GM/50 ML BAG IVPB SCH (17:30)
[2019-04-13] MEDS ORDERED: ACETAMINOPHEN 1000 MG/100 ML VIAL (NON FORMULARY) IVPB ONE (17:35)
[2019-04-13] MEDS ORDERED: oxyCODONE HCL 5 MG TABLET PO PRN (17:37)
--- NOTE | 2019-04-13 17:45 | CONSULT ---
Consultation: REQUESTING PROVIDER: Dr. Joss Mullins CONSULT REQUEST: We have been asked to medically evaluate and follow this patient post-operatively. HISTORY OF PRESENT ILLNESS: 78 year-old female with a PMH significant for HTN, HLD, Type II NIDDM, CKD, major depressive disorder, COPD, anemia, and heart failure. Now s/p left total hip replacement earlier today with Dr. Mullins. REVIEW OF SYSTEMS: CONSTITUTIONAL: Absent: fever, chills, diaphoresis, generalized weakness, malaise, loss of appetite, weight change HEENT: Absent: rhinorrhea, nasal congestion, throat pain, throat swelling, difficulty swallowing, mouth swelling, ear pain, eye pain, visual changes CARDIOVASCULAR: Absent: chest pain, syncope, palpitations, irregular heart rate, lightheadedness , peripheral edema RESPIRATORY: Absent: cough, shortness of breath, dyspnea with exertion, orthopnea, wheezing, stridor, hemoptysis GASTROINTESTINAL: Absent: abdominal pain, abdominal distension, nausea, vomiting, diarrhea, constipation, melena, hematochezia GENITOURINARY: Absent: dysuria, frequency, urgency, hesitancy, hematuria, flank pain, genital pain MUSCULOSKELETAL: Absent: myalgia, arthralgia, joint swelling, back pain, neck pain SKIN: Absent: rash, itching, pallor HEMATOLOGIC/IMMUNOLOGIC: Absent: easy bleeding, easy bruising, lymphadenopathy, frequent infections ENDOCRINE: Absent: unexplained weight gain, unexplained weight loss, heat intolerance, cold intolerance NEUROLOGIC: Absent: headache, focal weakness or paresthesias, dizziness, unsteady gait, seizure, mental status changes, bladder or bowel incontinence PSYCHIATRIC: Absent: anxiety, depression, suicidal or homicidal ideation, hallucinations. PHYSICAL EXAMINATION Vital Signs - 24 hr 04/13/19 04/13/19 04/13/19 09:48 13:38 13:40 Temperature 98.4 F 94.5 F L Pulse Rate 63 60 62 Respiratory 16 14 20 Rate Blood Pressure 145/61 137/46 L 97/49 L O2 Sat by Pulse 100 100 Oximetry (%) 04/13/19 04/13/19 04/13/19 13:45 13:50 13:55 Temperature 94.2 F L Pulse Rate 63 62 61 Respiratory 18 18 18 Rate Blood Pressure 103/43 L 110/51 L 105/45 L O2 Sat by Pulse 100 100 100 Oximetry (%) 0504/13/19 04/13/19 14:10 14:25 14:40 Temperature 94.4 F L Pulse Rate 61 62 65 Respiratory 16 21 H 21 H Rate Blood Pressure 102/46 L 111/45 L 119/54 L O2 Sat by Pulse 99 99 100 Oximetry (%) 04/13/19 04/13/19 14:55 15:10 Temperature 97.3 F L Pulse Rate 64 66 Respiratory 20 20 Rate Blood Pressure 116/45 L 116/48 L O2 Sat by Pulse 100 100 Oximetry (%) GENERAL: Awake, alert, and fully oriented, in no acute distress. Pain at surgical site. LUNGS: Breath sounds equal, clear to auscultation bilaterally. No wheezes, and no crackles. No accessory muscle use. HEART: Regular rate and rhythm, normal S1 and S2 ABDOMEN: Soft, nontender, not distended UPPER EXTREMITIES: 2+ pulses, warm, well-perfused. No cyanosis. No clubbing. Cap refill <2 seconds. No peripheral edema. LEFT LOWER EXTREMITY: 2+ pulses, warm, well-perfused. No calf tenderness. No peripheral edema. Left lateral thigh surgical dressing c/d/i; no surrounding erythema, warmth, fluctance NEUROLOGICAL: Cranial nerves II-XII intact. Normal speech. Laboratory Results - last 24 hr 04/13/19 04/13/19 13:45 13:45 WBC 5.3 RBC 3.07 L Hgb 8.6 L Hct 26.4 L MCV 86.0 MCH 28.1 MCHC 32.7 RDW 14.7 Plt Count 289 MPV 8.1 Blood Type A POSITIVE Antibody Screen Negative Crossmatch See Detail Active Medications Generic Name Dose Route Start Last Admin Trade Name Freq PRN Reason Stop Dose Admin Acetaminophen 650 mg 04/13/19 23:55 Tylenol - PO 04/15/19 23:59 Q6H PRN PAIN LEVEL 1-5 Al Hydroxide/Mg Hydroxide 30 ml 04/13/19 12:54 Mylanta Oral Suspension - PO Q4H PRN DYSPEPSIA Albuterol Sulfate 1 amp 04/13/19 22:00 Ventolin 0.083% Nebulizer Soln - NEB DAILY JANESSA Aripiprazole 40 mg 04/13/19 22:00 Abilify PO HS JANESSA Aspirin 81 mg 04/13/19 22:00 Asa - PO BID JANESSA Atorvastatin Calcium 10 mg 04/13/19 22:00 Lipitor - PO HS [facility] Fenofibric Acid 135 mg 04/14/19 10:00 Trilipix - PO DAILY [facility] Fentanyl 25 mcg 04/13/19 13:55 Sublimaze Injection - IVPUSH [id number] PRN PAIN-PACU ORDER X 4 DOSES ONLY Gabapentin 300 mg 04/13/19 22:00 Neurontin - PO HS [facility] Cefazolin Sodium 1 gm in 50 mls @ 100 mls/hr 04/13/19 18:00 04/13/19 17:30 Ancef 1 Gm Premixed Ivpb - IVPB 04/14/19 02:29 100 mls/hr Q8H-IV JANESSA Administration Lactated Ringer's 1,000 mls @ 42 mls/hr 04/13/19 14:00 04/13/19 17:41 Lactated Ringers Solution IV Not Given ASDIR [facility] Magnesium Hydroxide 30 ml 04/13/19 12:54 Milk Of Magnesia - PO PRN PRN CONSTIPATION Methylphenidate HCl 10 mg 04/14/19 10:00 Ritalin - PO DAILY [facility] Multivitamins/Minerals/Vitamin C 1 tab 04/14/19 10:00 Tab-A-Vit - PO DAILY [facility] Ondansetron HCl 4 mg 04/13/19 12:54 Zofran Injection IVPUSH Q6H PRN NAUSEA Oxycodone HCl 5 mg 04/13/19 17:37 Roxicodone - PO Q6H PRN PAIN LEVEL 4 - 6 Pantoprazole Sodium 40 mg 04/14/19 10:00 Protonix - PO DAILY [facility] Senna/Docusate Sodium 2 tablet 04/13/19 22:00 Pericolace - PO BID [facility] Sertraline HCl 50 mg 04/14/19 10:00 Zoloft - PO DAILY [facility] Pre op Hgb 9.3 BUN 30 Cr 2.63 Intra op Ancef x 2 LR 1400cc EBL 250cc ASSESSMENT/PLAN 78 year-old female with a PMH significant for HTN, HLD, Type II NIDDM, CKD, major depressive disorder, COPD, anemia, and heart failure. Now s/p left total hip replacement earlier today with Dr. Mullins. Left total hip replacement --POD #0 --perioperative antibiotics per surgery --pain management per surgery --ASA 81mg BID --protonix --bowel regimen --incentive spirometry --Trial of void: 8 hours max Anemia --pre op Hgb 9.3 --surgery ordered post-op transfusion --due to h/o CHF, will give one unit followed by Gino; repeat cbc in am to see if second unit indicated Heart failure, NOS --not on home diuretic --appears euvolemic CKD --pre-op Cr 2.63 --repeat in am Hypertension --BP stable --not on home hypertensives Hyperlipidemia --continue Lipitor, fenofibric acid Type II NIDDM --Novolog sliding scale coverage Major depressive disorder --continue abilify, ritalin, Zoloft COPD --stable FEN Fluids: PO intake adequate Electrolytes: replete as indicated Nutrition: regular diet DVT prophylaxis: OOB, ambulation, SCDs, TEDs, ASA 81mg BID Physical therapy Dispo: We will continue to follow the patient. Thank you for this consultative opportunity. Visit type - Emergency Visit Emergency Visit: No - New Patient This patient is new to me today: Yes Date on this admission: 04/14/19 - Critical Care Critical Care patient: No
[2019-04-13] MEDS: ARIPiprazole 10 MG TABLET PO SCH (21:06)
[2019-04-13] MEDS: ALBUTEROL SO4 0.083% IH SOL 2.5 MG/3 ML VIAL.NEB. NEB SCH (21:07)
[2019-04-13] MEDS: ASPIRIN 81 MG CHEWABLE TABLETS PO SCH (21:07)
[2019-04-13] MEDS: FENOFIBRIC ACID 135 MG CAP PO SCH (21:08)
[2019-04-13] MEDS: ATORVASTATIN CA 10 MG TABLET (FP) PO SCH (21:08)
[2019-04-13] MEDS: SENNOSIDES/DOCUSATE COMBO (SENNA PLUS) TABLET (UD) PO SCH (21:08)
[2019-04-13] MEDS: GABAPENTIN 300 MG CAPSULE (FP) PO SCH (21:08)
[2019-04-13] MEDS ORDERED: PATIENT'S OWN MEDICATION (NON-FORMULARY) (Lovastatin [Lovastatin] 40 MG) PO SCH (22:00)
[2019-04-13] MEDS ORDERED: ARIPiprazole 20 MG TABLET PO SCH (22:00)
[2019-04-13] MEDS ORDERED: FUROSEMIDE 40 MG/4 ML INJECTABLE VIAL IVPUSH ONE (22:00)
[2019-04-13] MEDS ORDERED: ACETAMINOPHEN 325 MG TABLET (FP) PO PRN (23:55)
[2019-04-14] MEDS: CEFAZOLIN 1 GM/D5W 1 GM/50 ML BAG IVPB SCH (01:46)
[2019-04-14 08:20] LABS: CALCIUM 8.4 mg/dl (8.5-10); CREATININE 2.1 mg/dl (0.55-1.3); MAGNESIUM 2.1 mg/dL (1.8-2.4); POTASSIUM 4.3 mmol/L (3.5-5.1)
[2019-04-14 09:12] LABS: HEMATOCRIT 26.6 % (32.4-45.2); HEMOGLOBIN 8.9 GM/dL (10.7-15.3); MCH 28.7 pg (25.7-33.7); MCHC 33.5 g/dl (32.0-36.0); MEAN CELL VOLUME 85.7 fl (80-96); MEAN PLT VOLUME 8.2 fl (7.5-11.1); PLATELET COUNT 250 K/MM3 (134-434); RDW 15.2 % (11.6-15.6); WHITE BLOOD COUNT 6.5 K/mm3 (4.0-10.0)
[2019-04-14] MEDS: SENNOSIDES/DOCUSATE COMBO (SENNA PLUS) TABLET (UD) PO SCH ×2 (09:40→21:41)
[2019-04-14] MEDS: ASPIRIN 81 MG CHEWABLE TABLETS PO SCH ×2 (09:40→21:40)
[2019-04-14] MEDS: MULTIVITAMINS (DAILY MVI) TABLET (FP) PO SCH (09:40)
[2019-04-14] MEDS: SERTRALINE HCL 50 MG TABLET (FP) PO SCH (09:40)
[2019-04-14] MEDS: METHYLPHENIDATE HCL 5 MG TABLET PO SCH (09:40)
[2019-04-14] MEDS: PANTOPRAZOLE 40 MG TABLET (FP) PO SCH (09:40)
[2019-04-14] MEDS ORDERED: FENOFIBRIC ACID 135 MG CAP PO SCH (10:00)
[2019-04-14] MEDS ORDERED: ALBUTEROL SO4 0.083% IH SOL 2.5 MG/3 ML VIAL.NEB. NEB SCH (10:00)
--- NOTE | 2019-04-14 10:27 | PN ---
Physical Exam: SUBJECTIVE: Patient seen and examined oob to chair. Has pain at surgical site. Participated in PT this morning, did well. Earlier had left groin pain, now resolved. Daughter present. OBJECTIVE: Vital Signs Period Temp Pulse Resp BP Sys/Gonzalez Pulse Ox Last 24 Hr 94.2 F-99.0 F 60-85 14-21 97-151/33-57 95-100 GENERAL: Awake, alert, and fully oriented, in no acute distress. LUNGS: Breath sounds equal, clear to auscultation bilaterally. No wheezes, and no crackles. No accessory muscle use. HEART: Regular rate and rhythm, normal S1 and S2 ABDOMEN: Soft, nontender, not distended, no hernia appreciated UPPER EXTREMITIES: 2+ pulses, warm, well-perfused. No cyanosis. No clubbing. Cap refill <2 seconds. No peripheral edema. LEFT LOWER EXTREMITY: 2+ pulses, warm, well-perfused. No calf tenderness. No peripheral edema. Left lateral thigh surgical dressing c/d/i; no surrounding erythema, warmth, fluctuance NEUROLOGICAL: Cranial nerves II-XII intact. Normal speech. Laboratory Results - last 24 hr 04/13/19 04/13/19 04/13/19 13:45 13:45 16:00 WBC 5.3 RBC 3.07 L Hgb 8.6 L Hct 26.4 L MCV 86.0 MCH 28.1 MCHC 32.7 RDW 14.7 Plt Count 289 MPV 8.1 Sodium Potassium Chloride Carbon Dioxide Anion Gap BUN Creatinine Est GFR (CKD-EPI)AfAm Est GFR (CKD-EPI)NonAf Random Glucose Calcium Magnesium Blood Type A POSITIVE A POSITIVE Antibody Screen Negative Crossmatch See Detail 04/14/19 04/14/19 07:10 07:10 WBC 6.5 RBC 3.10 L Hgb 8.9 L Hct 26.6 L MCV 85.7 MCH 28.7 MCHC 33.5 RDW 15.2 Plt Count 250 MPV 8.2 Sodium 136 Potassium 4.3 Chloride 100 Carbon Dioxide 23 Anion Gap 13 BUN 54 H Creatinine 2.1 H Est GFR (CKD-EPI)AfAm 25.48 Est GFR (CKD-EPI)NonAf 21.99 Random Glucose 135 H Calcium 8.4 L Magnesium 2.1 Blood Type Antibody Screen Crossmatch Active Medications Generic Name Dose Route Start Last Admin Trade Name Freq PRN Reason Stop Dose Admin Acetaminophen 650 mg 04/13/19 23:55 Tylenol - PO 04/15/19 23:59 Q6H PRN PAIN LEVEL 1-5 Al Hydroxide/Mg Hydroxide 30 ml 04/13/19 12:54 Mylanta Oral Suspension - PO Q4H PRN DYSPEPSIA Albuterol Sulfate 1 amp 04/13/19 22:00 04/13/19 21:07 Ventolin 0.083% Nebulizer Soln - NEB 1 amp HS JANESSA Administration Aripiprazole 40 mg 04/13/19 22:00 04/13/19 21:06 Abilify PO 40 mg HS JANESSA Administration Aspirin 81 mg 04/13/19 22:00 04/14/19 09:40 Asa - PO 81 mg BID JANESSA Administration Atorvastatin Calcium 10 mg 04/13/19 22:00 04/13/19 21:08 Lipitor - PO 10 mg HS JANESSA Administration Fenofibric Acid 135 mg 04/13/19 22:00 04/13/19 21:08 Trilipix - PO 135 mg HS JANESSA Administration Gabapentin 300 mg 04/13/19 22:00 04/13/19 21:08 Neurontin - PO 300 mg HS JANESSA Administration Magnesium Hydroxide 30 ml 04/13/19 12:54 Milk Of Magnesia - PO PRN PRN CONSTIPATION Methylphenidate HCl 10 mg 04/14/19 10:00 04/14/19 09:40 Ritalin - PO 10 mg DAILY JANESSA Administration Multivitamins/Minerals/Vitamin C 1 tab 04/14/19 10:00 04/14/19 09:40 Tab-A-Vit - PO 1 tab DAILY JANESSA Administration Ondansetron HCl 4 mg 04/13/19 12:54 04/13/19 18:25 Zofran Injection IVPUSH 4 mg Q6H PRN Administration NAUSEA Oxycodone HCl 5 mg 04/13/19 17:37 Roxicodone - PO Q6H PRN PAIN LEVEL 4 - 6 Pantoprazole Sodium 40 mg 04/14/19 10:00 04/14/19 09:40 Protonix - PO 40 mg DAILY JANESSA Administration Senna/Docusate Sodium 2 tablet 04/13/19 22:00 04/14/19 09:40 Pericolace - PO 2 tablet BID JANESSA Administration Sertraline HCl 50 mg 04/14/19 10:00 04/14/19 09:40 Zoloft - PO 50 mg DAILY JANESSA Administration Pre op Hgb 9.3 BUN 30 Cr 2.63 Intra op Ancef x 2 LR 1400cc EBL 250cc ASSESSMENT/PLAN 78 year-old female with a PMH significant for HTN, HLD, Type II NIDDM, CKD, major depressive disorder, COPD, anemia, and heart failure. Now s/p left total hip replacement earlier today with Dr. Mullins. Left total hip replacement --POD #1 --perioperative antibiotics complete --pain management per surgery --ASA 81mg BID --protonix --bowel regimen --incentive spirometry Anemia --pre op Hgb 9.3 --transfused 1U PRBC on 04/13, Hgb 8.9, no further transfusion at this time Heart failure, NOS --not on home diuretic --appears euvolemic CKD --pre-op Cr 2.63, 2.1 today Hypertension --BP stable --not on home hypertensives Hyperlipidemia --continue Lipitor, fenofibric acid Type II NIDDM --Novolog sliding scale coverage Major depressive disorder --continue abilify, ritalin, Zoloft COPD --stable FEN Fluids: PO intake adequate Electrolytes: replete as indicated Nutrition: regular diet DVT prophylaxis: OOB, ambulation, SCDs, TEDs, ASA 81mg BID Physical therapy Dispo: We will continue to follow the patient. Thank you for this consultative opportunity. Visit type - Emergency Visit Emergency Visit: No - New Patient This patient is new to me today: No - Critical Care Critical Care patient: No
[2019-04-14] MEDS ORDERED: traMADol HCL 50 MG TABLET PO PRN (11:48)
[2019-04-14] MEDS: ACETAMINOPHEN 325 MG TABLET (FP) PO SCH ×2 (11:57→18:05)
[2019-04-14] MEDS ORDERED: oxyCODONE HCL 5 MG TABLET PO PRN (12:07)
--- NOTE | 2019-04-14 12:33 | PN ---
Progress Note (short form) - Note Progress Note: POD#1 PT oob to chair this am. Having some left groin pain. No CP or SOB. s/p 1 units PRBC overnight with lasix. Vital Signs Period Temp Pulse Resp BP Sys/Gonzalez Pulse Ox Last 24 Hr 94.2 F-99.0 F 60-85 14-21 97-151/33-57 95-100 GEN: OOB to chair/NAD CV: RRR Lungs: CTA b/l ABD: soft, non-distended, non-tender LE: 5/5 dorsi/plantar flexion b/l. no calf tenderness or swelling noted b/l. SCDs in place. Left Hip: dressing c/d/i/ soft no ecchymosis CBC, BMP //19 07:10 05/30/19 07:10 A/p: 78 yo female s/p Left total hip replacement, POD#1 Diet as tolerated OOB with PT Pain management with oral tylenol(scheduled) and neurontin. Oxycodone as needed DVT ppx with aspirin 81 mg BID, ambulate and SCDS D/w Dr Mullins
[2019-04-14] MEDS ORDERED: PT OWN MED DRAWER 7, Y5N ONE (21:25)
[2019-04-14] MEDS: ATORVASTATIN CA 10 MG TABLET (FP) PO SCH (21:40)
[2019-04-14] MEDS: ARIPiprazole 10 MG TABLET PO SCH (21:40)
[2019-04-14] MEDS: GABAPENTIN 300 MG CAPSULE (FP) PO SCH (21:40)
[2019-04-14] MEDS: FENOFIBRIC ACID 135 MG CAP PO SCH (21:41)
[2019-04-14] MEDS: ALBUTEROL SO4 0.083% IH SOL 2.5 MG/3 ML VIAL.NEB. NEB SCH (21:41)
[2019-04-15] MEDS: ACETAMINOPHEN 325 MG TABLET (FP) PO SCH ×3 (00:19→13:11)
[2019-04-15 07:46] LABS: BASO % 0.2 % (0-2.0); EOS % 2.1 % (0-4.5); HEMATOCRIT 25.5 % (32.4-45.2); HEMOGLOBIN 8.3 GM/dl (10.7-15.3); LYMPH % 11.7 % (8-40); MCH 28.2 pg (25.7-33.7); MCHC 32.7 g/dl (32.0-36.0); MEAN CELL VOLUME 86.4 fl (80-96); MEAN PLT VOLUME 8.2 fl (7.5-11.1); MONO % 8.6 % (3.8-10.2); NEUT % 77.4 % (42.8-82.8); PLATELET COUNT 248 K/MM3 (134-434); RBC 2.95 M/mm3 (3.60-5.2); RDW 14.5 % (11.6-15.6); WHITE BLOOD COUNT 6.3 K/mm3 (4.0-10.8)
[2019-04-15 07:48] LABS: ALBUMIN 2.6 g/dl (3.4-5.0); BILIRUBIN,TOTAL 1.1 mg/dl (0.2-1); CALCIUM 8.2 mg/dl (8.5-10); CREATININE 2.2 mg/dl (0.55-1.3); POTASSIUM 4.1 mmol/L (3.5-5.1); TOT PROT 5.5 g/dl (6.4-8.2)
--- NOTE | 2019-04-15 09:15 | PN ---
Progress Note (short form) - Note Progress Note: POD 2, s/p L THR Pt seen and examined. States she is doing "okay this morning". Has some pain with ambulation. Tolerating PO, passing flatus. No Bm yet. Voiding without issue. Denies cp/sob, n/v/d, calf pain/edema. Last Vital Signs Temp Pulse Resp BP Pulse Ox 98.4 F 64 18 101/35 L 99 04/15/19 06:00 04/15/19 06:00 04/15/19 08:43 04/15/19 06:00 04/15/19 08:43 CBC, BMP 04/15/19 07:14 04/15/19 07:14 Gen: awake, alert, nad Resp: Unlabored on RA Ext: L thigh dressing c/d/i. Thigh with some edema, compartments soft. Neuro: 03/20 DF/PF/EHL/FHL B/L LES, SILT b/l. Bilateral feet warm to touch. A/P: 78 y/o F w/ PMHx HTN, HLD, Type II NIDDM, CKD, major depressive disorder, COPD, anemia, and heart failure now POD 2, s/p L THR. Doing well overall. Afebrile, VSS. H/H stable. Creatinine 2.2 from 2.1 yesterday -plan for d/c to rehab later today -Discharge instructions reviewed with pt and daughter at length, all questions answered. Pt and daughter verbalized understanding. d/w attendings Dr Bolden
[2019-04-15] MEDS: MULTIVITAMINS (DAILY MVI) TABLET (FP) PO SCH (10:02)
[2019-04-15] MEDS: ASPIRIN 81 MG CHEWABLE TABLETS PO SCH (10:02)
[2019-04-15] MEDS: SERTRALINE HCL 50 MG TABLET (FP) PO SCH (10:02)
[2019-04-15] MEDS: PANTOPRAZOLE 40 MG TABLET (FP) PO SCH (10:02)
[2019-04-15] MEDS: METHYLPHENIDATE HCL 5 MG TABLET PO SCH (10:02)
[2019-04-15] MEDS: SENNOSIDES/DOCUSATE COMBO (SENNA PLUS) TABLET (UD) PO SCH (10:02)
--- NOTE | 2019-04-15 10:48 | DS ---
Physical Exam: SUBJECTIVE: Patient seen and examined. States she is doing "okay this morning". Has some pain with ambulation. Tolerating PO, passing flatus. No Bm yet. Voiding without issue. Denies cp/sob, n/v/d, calf pain/edema. OBJECTIVE: Vital Signs Period Temp Pulse Resp BP Sys/Gonzalez Pulse Ox Last 24 Hr 98.4 F-98.7 F 64-72 18-19 101-133/35-43 98-99 PHYSICAL EXAM Gen: awake, alert, nad Resp: Unlabored on RA Ext: L thigh dressing c/d/i. Thigh with some edema, compartments soft. Neuro: 03/20 DF/PF/EHL/FHL B/L LES, SILT b/l. Bilateral feet warm to touch. LABS Laboratory Results - last 24 hr 04/15/19 04/15/19 07:14 07:14 WBC 6.3 RBC 2.95 L Hgb 8.3 L Hct 25.5 L D MCV 86.4 MCH 28.2 MCHC 32.7 RDW 14.5 Plt Count 248 MPV 8.2 Absolute Neuts (auto) 5.0 Neutrophils % 77.4 Lymphocytes % 11.7 Monocytes % 8.6 Eosinophils % 2.1 Basophils % 0.2 Sodium 136 Potassium 4.1 Chloride 104 Carbon Dioxide 26 Anion Gap 6 L BUN 50 H Creatinine 2.2 H Est GFR (CKD-EPI)AfAm 24.09 Est GFR (CKD-EPI)NonAf 20.78 Random Glucose 117 H Calcium 8.2 L Magnesium 2.0 Total Bilirubin 1.1 H AST 55 H ALT 10 L Alkaline Phosphatase 33 L Total Protein 5.5 L Albumin 2.6 L HOSPITAL COURSE: The patient was admitted to the Med-Surg Unit after an elective repair of her Left hip OA. Now, s/p Left total hip replacement. An xray was obtained in the OR and confirmed hardware placement in good position with no fractures or dislocations. The day of surgery, the patient ambulated the hallways with assistance. Non- narcotic pain management control was achieved with an oral approach. Narcotics were avoided due to over sedation and interaction with patients home anti- psychotic medications. Patient received 1 unit pRBC's for post op anemia. Hemoglobin/hematocrit remained relatively stable at discharge. Claudia-operative IV ABX were administered. DVT prophylaxis was achieved with SCDs and early ambulation. The patient ambulated with Physical Therapy and rehab was recommended upon discharge. The discharge instructions and an oral pain management plan were reviewed with the patient. All questions answered. Above plan discussed with Dr. Mullins and agreed. Date of Admission:04/13/19 Date of Discharge: 04/15/19 Minutes to complete discharge: 30 Discharge Summary Reason For Visit: OSTEOARTHRITIS LEFT HIP - Instructions Diet, Activity, Other Instructions: Dr. Mullins Discharge Instructions for Hip Replacement Post Operative Instructions Physical activity Physical Therapist will come to your home for the first 5 days. You will be set up with outpatient PT at your first post-operative visit. Use assistive devices for ambulation at all times. Weight bearing as tolerated on your surgical side. Wound care Leave your surgical dressing in place. Do not change the dressing until seen by your surgeon in the office. No baths or showers. Do not submerge your incision. Do not apply any ointments or lotions to your incision. Please call the office if your dressing is soiled/dirty or is falling off. Apply Graduated Compression Stockings (TEDS) to both lower extremities-remove daily for hygiene ONLY. Diet There are no dietary restrictions. Eat healthy, high-fiber foods. Drink 6 to 8 glasses of liquid each day. This will assist in keeping your bowels are regular. Pain management Any pain prescription medication ordered should be taken as prescribed for moderate to severe pain. Do not take additional Tylenol while taking Percocet. Posterior Hip Precautions: Do not cross the leg you had surgery on over your other leg. (Do not cross your legs.)Use an elevated toilet seat. Do not sit on low chairs or beds. Use purple pillow (abductor) when lying in bed. Take Aspirin 81 mg two times a day for a total of 6 weeks to prevent blood clots. Call Dr. Mullins for any of the following: Severe pain not relieved by medication Fever of 101 or higher Excessive bleeding or drainage on dressing Inability to urinate If you experience chest pain or shortness of breath, please seek emergency care immediately. ISTOP: [id number] Rx Written Rx Dispensed Drug Quantity Days Supply Prescriber Name 03/15/2019 03/16/2019 methylphenidate 10 mg tablet 30 30 Sundar Newton MD Please call the office at to confirm your post-op appointment for the week following surgery. - Home Medications Comprehensive Discharge Medication List: Ambulatory Orders Albuterol 0.083% Nebulizer Devi [Ventolin 0.083% Nebulizer Soln -] 1 neb NEB DAILY 04/15/18 Aripiprazole [Abilify] 40 mg PO HS 04/15/18 Fenofibric Acid [Trilipix -] 135 mg PO DAILY 04/15/18 Ferrous Sulfate [Iron] 65 mg PO DAILY 04/15/18 Folic Acid - 1 mg PO DAILY 04/15/18 Gabapentin 300 mg PO HS 04/15/18 Lovastatin 40 mg PO HS 04/15/18 Methylphenidate HCl [Ritalin] 10 mg PO DAILY 04/15/18 Sertraline HCl 50 mg PO DAILY 04/15/18 Ibandronate Sodium 150 mg PO MONTHLY 07/07/18 Aspirin [ASA -] 81 mg PO BID #84 tab.chew 07/09/18 Calcium Carbonate/Vitamin D3 [Calcium 600 + Vit D Tablet] 1 each PO DAILY Acetaminophen [Tylenol .Regular Strength -] 650 mg PO Q6H tablet 04/15/19 Aspirin [ASA -] 81 mg PO BID tab.chew 04/15/19 Ferrous Sulfate [Feosol] 325 mg PO DAILY@1200 ud 04/15/19 Folic Acid - 1 mg PO DAILY tablet 04/15/19 Mag Hydrox/Al Hydrox/Simeth [Mylanta Oral Suspension -] 30 ml PO Q4H PRN cup Multivitamins [Multivit ([facility])] 1 tab PO DAILY tab 04/15/19 Pantoprazole Sodium [Protonix -] 40 mg PO DAILY tablet.ec 04/15/19 Sennosides/Docusate Sodium [Pericolace -] 2 tablet PO BID tablet 04/15/19 This patient is new to me today: Yes Date on this admission: 04/15/19 Emergency Visit: No Critical Care patient: No - Discharge Referral Referred to [facility] Med P.C.: No
[2019-04-15] MEDS ORDERED: FOLIC ACID 1 MG TABLET (FP) PO SCH (11:48)
[2019-04-15] MEDS ORDERED: FERROUS SO4 325 MG TABLET (FP) PO SCH (12:00)
[2019-04-15 13:52] VITALS: BP 133/51; PULSE 69; TEMP 98.7
--- NOTE | 2019-04-15 16:39 | PN ---
Physical Exam: SUBJECTIVE: Patient seen and examined OBJECTIVE: Vital Signs Period Temp Pulse Resp BP Sys/Gonzalez Pulse Ox Last 24 Hr 98.4 F-98.7 F 64-72 16-18 101-133/35-51 98-100 GENERAL: Awake, alert, and fully oriented, in no acute distress. LUNGS: Breath sounds equal, clear to auscultation bilaterally. No wheezes, and no crackles. No accessory muscle use. HEART: Regular rate and rhythm, normal S1 and S2 ABDOMEN: Soft, nontender, not distended, no hernia appreciated UPPER EXTREMITIES: 2+ pulses, warm, well-perfused. No cyanosis. No clubbing. Cap refill <2 seconds. No peripheral edema. LEFT LOWER EXTREMITY: 2+ pulses, warm, well-perfused. No calf tenderness. No peripheral edema. Left lateral thigh surgical dressing c/d/i; no surrounding erythema, warmth, fluctuance NEUROLOGICAL: Cranial nerves II-XII intact. Normal speech. Laboratory Results - last 24 hr 04/15/19 04/15/19 07:14 07:14 WBC 6.3 RBC 2.95 L Hgb 8.3 L Hct 25.5 L D MCV 86.4 MCH 28.2 MCHC 32.7 RDW 14.5 Plt Count 248 MPV 8.2 Absolute Neuts (auto) 5.0 Neutrophils % 77.4 Lymphocytes % 11.7 Monocytes % 8.6 Eosinophils % 2.1 Basophils % 0.2 Sodium 136 Potassium 4.1 Chloride 104 Carbon Dioxide 26 Anion Gap 6 L BUN 50 H Creatinine 2.2 H Est GFR (CKD-EPI)AfAm 24.09 Est GFR (CKD-EPI)NonAf 20.78 Random Glucose 117 H Calcium 8.2 L Magnesium 2.0 Total Bilirubin 1.1 H AST 55 H ALT 10 L Alkaline Phosphatase 33 L Total Protein 5.5 L Albumin 2.6 L Pre op Hgb 9.3 BUN 30 Cr 2.63 Intra op Ancef x 2 LR 1400cc EBL 250cc ASSESSMENT/PLAN 78 year-old female with a PMH significant for HTN, HLD, Type II NIDDM, CKD, major depressive disorder, COPD, anemia, and heart failure. Now s/p left total hip replacement earlier today with Dr. Mullins. Left total hip replacement --POD #2 --perioperative antibiotics complete --pain management per surgery --ASA 81mg BID --protonix --bowel regimen --incentive spirometry Acute blood loss anemia in setting of chronic anemia Chronic anemia --pre op Hgb 9.3 --post op Hgb 8.6, transfused 1U PRBC on 04/13, improved to Hgb 8.9, no further transfusion at this time Heart failure, NOS --not on home diuretic --appears euvolemic CKD --pre-op Cr 2.63, 2.2 today Hypertension --BP stable --not on home hypertensives Hyperlipidemia --continue Lipitor, fenofibric acid Type II NIDDM --Novolog sliding scale coverage Major depressive disorder --continue abilify, ritalin, Zoloft COPD --stable FEN Fluids: PO intake adequate Electrolytes: replete as indicated Nutrition: regular diet DVT prophylaxis: OOB, ambulation, SCDs, TEDs, ASA 81mg BID Physical therapy Dispo: We will continue to follow the patient. Thank you for this consultative opportunity. Visit type - Emergency Visit Emergency Visit: No - New Patient This patient is new to me today: No - Critical Care Critical Care patient: No
--- NOTE | 2019-04-18 17:14 | PATH ---
Surgical Pathology Report Patient Name: [address] Med. Rec. #: [id number] /Age/Gender: 1940 (Age: 78) / F Account: [id number] Location: [facility] MED-SURG Taken: 04/13/2019 Received: 04/13/2019 Reported: 04/18/2019 Physicians: Joss Mullins M.D. Specimen(s) Received LEFT FEMORAL HEAD Clinical History Left hip osteoarthritis Final Diagnosis LEFT FEMORAL HEAD, RESECTION: DEGENERATIVE JOINT DISEASE, LEFT HIP. Electronically Signed Cassidy Lucas M.D. Gross Description Received in formalin, labeled "left femoral head," is a 4.4 x 4.4 x 3.9 cm. femoral head with a 1.1 cm in length portion of femoral neck attached. The margin of resection is smooth. No areas of eburnation are identified. The articular surface is alexis-yellow and focally lifting away from the underlying bone. The underlying trabecular bone is yellow and focally softened. A sales training representative section is submitted in one cassette, following decalcification. 04/15/2019 [facility]04/15/2019
--- NOTE | 2019-04-22 20:28 | OP ---
Date of Operation: 04/13/2019 Surgeon: Joss Mullins M.D. Trackman: Shukri Mullins M.D. Pre-Operative Diagnosis: Primary osteoarthritis left hip. Post-Operative Diagnosis: Primary osteoarthritis left hip. Surgical Procedure: Left total hip replacement via Direct Suprior approach. Findings: None. Anaesthesia: Spinal, block, sedation. Position: Right lateral decubitus. Incision: Direct superior. Estimated Blood Loss: 250cc. Intravenous Fluid: 1.4L crystalloid. Specimens: Left femoral head. Drains: None. Complications: None. Urine output: None. Bacteriology: None. Transfusions: None. Closure: #1 Vicryl, 3-0 Biosyn. Indications: The patient was indicated for a left total hip replacement in order to facilitate improved motion and mobilization, and to prevent the complications associated with a sedentary lifestyle. The patient was identified in the holding area by her armband. A long discussion was held with the patient (in the presence of the legal guardian/ patients relative) regarding the risks, benefits and alternatives of the above named procedure. Risks include but are not limited to: pain, bleeding, infection , damage to surrounding structures (including nerves, blood vessels, skin, ligaments, tendons and bone), wound complications, failure of hardware/implants/ reduction, need for further surgery, blood clots, myocardial infarction, pulmonary embolism, cerebrovascular insult, anaesthesia complications, compartment syndrome, limb loss, limp, loss of function, and . Benefits as mentioned above. Alternatives include no surgery. All questions were answered. The patient understood and agreed to the procedure. Informed consent was obtained, witnessed and verified. The patients correct operative limb - that is the left lower extremity - was marked, and the patient was taken to the operating room after being seen by the anesthesia and nursing staff. Procedure: The patient was brought into the operating room, placed on the OR table and secured with a safety strap. Consent and the operative site were again verified with the patient and nursing and anaesthesia staff. Anaesthesia, IV antibiotics, and TXA were then administered without complication. A time out was done, led by me the attending surgeon. The patient was gently turned into the right lateral decubitus position. An axillary roll was placed. A Stulberg hip positioner with well-padded bolsters was used to secure the patient in the lateral decubitus position. The down arm was placed on a well-padded arm board. The up arm was brought across the patients body and placed on 2 pillows. Foam egg crates were placed under the down knee and ankle, and bony prominences were well padded. The operative site was then prepped and draped in the standard sterile fashion. Time out was again done and the case began. Operation: A standard Direct Superior surgical approach was utilized to access the hip joint. With a #10 blade, a skin incision was taken from the posterior-superior corner of the greater trochanter in a posterior-superior direction. This was approximately 10cm in length. Electrocautery was utilized to carry the deep dissection down to the level of the gluteus aysir fascia. Hemostasis was assured using electrocautery (bipolar and unipolar). The gluteus yasir fascia was incised, and the fibers of gluteus yasir were in line with the trajectory of the incision. This confirmed the accuracy of our planned incision based on palpated landmarks and surface anatomy. A White elevator was used to split the distal fibers of gluteus yasir, in line with the fibers, just proximal to their insertion into the iliotibial band. Great care was taken not to incise the iliotibial band. Gluteus yasir fibers were split proximally using the White elevator until reaching the apex of the wound. Again, hemostasis was assured. The lena-capsular fat pad was exposed utilizing curved handle bar retractors. The lena-capsular fat pad was excised off the inferior border of the gluteus medius muscle belly, exposing the insertion of the hip short external rotator muscle group. The piriformis tendon was identified and freed from adhesions to the capsule using a 90-degree clamp. This tendon was then released from its insertion using electrocautery. The tendon was tagged with a # 1 Ethibond suture and tied to the inferior aspect of the proximal wound apex. The tendon, thus, served as a sling to retract and protect the sciatic nerve. With the piriformis tendon reflected away from its insertion, the hip joint capsule was visualized. Electrocautery was used to perform a capsulotomy and synovial joint fluid was aspirated. Next, the superior leaflet of the capsule was elevated using a White elevator to create separation from the underlying labrum and also to create a plane for later placement of a supra-acetabular retractor. The labrum was excised using electrocautery. The hip was then gently dislocated. A standard femoral neck cut was made using an oscillating saw. A 3/4 " osteotome was delivered into the femoral head using mallet strikes. The femoral head was then removed. Anterior, inferior, and supra-acetabular retractors were placed to expose the acetabulum. The pulvinar was excised using electrocautery. Odd sized reamers were used to prepare the acetabular bone bed. Healthy blushes of bleeding were observed from the reamed cancellous bone bed. Next, a size 54mm [place] Trident cup was impacted into position, achieving excellent press-fit. A size _36mm neutral polyethylene liner was then impacted into the cup. Excellent placement of the polyethylene liner, and excellent press fit of the cup were confirmed. Next, attention was turned to femoral preparation. The anterior and supra-acetabular retractors were removed. The cut femoral neck was then exposed using the inferior acetabular retractor around the calcar, and a straight 90-degree retractor to retract gluteus medius. The box-cutter osteotome was used with a mallet to removed bone from the lateral femoral neck. An opening reamer was delivered by hand to find the femoral canal. A lateralizing reamer was used with power to lateralize the proximal entry into the canal, so as to avoid placing the stem into varus. The femoral bone bed was then prepared using broaches with gentle mallet strikes. The tibia was used as a goniometer with which to dial in approximately 5 degrees of stem anteversion. Trial components were assembled and the hip was reduced. The hip was taken through a full range of motion and proved stable throughout this range of motion, including at the extremes of positions of compromised. All trial femoral components were removed. Another 1g of IV Ancef was administered so that the bone bed would be rich with antibiotic at the time of seating of the femoral implant. A [place] Accolade II (127-degree NSA, high offset) #7 stem was then implanted using gentle mallet strikes, diligently matching the prepared degree of stem anteversion. With the stem fully seated, a 36mm diameter , -5mm length ceramic/Biolox femoral head was then selected and implanted. The hip was once again reduced, and taken through a full range of motion. Stability was once again assured. Leg length was satisfactory. The wounds were copiously irrigated, as they had been regularly throughout the case so as to keep the retracted tissues wet, and in order to flush out wound debris. The capsule was primarily repaired using #1 Vicryl sutures in simple interrupted fashion. The tagged piriformis tendon was released and tied to the posterior-lateral corner of the greater trochanter. The remaining wounds were again irrigated. Hemostasis was assured and the wound was closed primarily using #1 Vicryl sutures. A 3-0 Biosyn suture was used to perform a subcuticular wound closure. A sterile, compressive dressing was applied. The sponge and needle counts were correct at the end of the case and the attending was present and scrubbed throughout the case. The patient was then transferred into a supine position and onto the hospital bed. A standard AP-pelvis x-ray was taken, demonstrating good overall alignment with a well reduced, congruent hip. There was no evidence of subsidence, loosening, or lena-prosthetic fracture. The patient was then was then transferred to the recovery room without incident/complications and in stable condition, having tolerated the procedure well. MD GENNA Vega/[id number] MTDD
== END 2019-04-15 15:11 | DRG 470 ==
LOC: FM/S 08:25
PROVIDERS: ADMIT Orthopaedic Surgery Orthopaedic Surgery of the Spine; ATTEND Orthopaedic Surgery Orthopaedic Surgery of the Spine
PROC: 0SRB04A Replacement of Left Hip Joint with Ceramic on Polyethylene Synthetic Substitute, Uncemented, Open Approach (ICD-10-PCS; principal; 2019-04-13 11:30)
DX: M16.12 Unilateral primary osteoarthritis, left hip (principal); I13.0 Hypertensive heart and chronic kidney disease with heart failure and stage 1 through stage 4 chronic kidney disease, or unspecified chronic kidney disease; D62 Acute posthemorrhagic anemia; E78.5 Hyperlipidemia, unspecified; F32.9 Major depressive disorder, single episode, unspecified; J44.9 Chronic obstructive pulmonary disease, unspecified; E11.22 Type 2 diabetes mellitus with diabetic chronic kidney disease; N18.9 Chronic kidney disease, unspecified; I50.9 Heart failure, unspecified
CPT/HCPCS: 36415; 36430; 36511; 73502-TC-LT-FY; 80048; 80053; 83735; 85025; 85027; 86850; 86900; 86901; 86922; 88304-TC; 88311-TC; 94640; 94760; 97116-GP; 97163-GP; J0131; P9038; P9058